=== PATIENT | male | born 1995 ===

== ENCOUNTER → 2020-02-26 14:26 | Outpatient (CLI) | payer OTHER | END | disposition home or self-care (01) | LOC: LAB 14:26 | DX: R05 Cough (principal) ==

== ENCOUNTER 2021-06-23 08:00 | Outpatient (CLI) | payer OTHER | END 2021-06-23 08:30 | disposition home or self-care (01) | LOC: PPH VACUNA 08:00 | PROVIDERS: ATTEND Emergency Medicine Pediatric Emergency Medicine | DX: Z23 Encounter for immunization (principal) ==